=== PATIENT | male | born 1960 | race African-American/Black ===

== ENCOUNTER 2016-12-30 20:37 | Emergency (ER) | payer SELFPAY ==
[~2016-12-30] VITALS: Ht 193 cm; Wt 66.0 kg
[~2016-12-30 20:37] MED LIST: AMLO2.5T45 PO; ASPI-1159 PO; ATOR40TA70 PO; CARV12.545 PO; CLOP75TA33 PO; INSLAN SQ; LISI-604 PO
[2016-12-30 20:51] VITALS: BP 176/105
== END 2016-12-31 03:10 | disposition left against medical advice (07) ==
LOC: ER 20:37
DX: Z53.21 Procedure and treatment not carried out due to patient leaving prior to being seen by health care provider (principal)